=== PATIENT | female | born 1975 | race Caucasian/White ===

== ENCOUNTER 2018-08-03 10:18 | Emergency (ER) | payer MEDICAID ==
[2018-08-03] MEDS ORDERED: IPRATROPIUM/ALBUTEROL 0.5-2.5 MG/3 ML AMPUL NEB ONE ×2 (10:58→12:28)
[2018-08-03] MEDS ORDERED: METHYLPREDNISOLONE INJ 125 MG/2 ML SDV IV ONE (10:58)
--- NOTE | 2018-08-03 11:00 | ER Document Report ---
ED Medical Screen (RME) - General Chief Complaint: Respiratory Distress Stated Complaint: COUGH Time Seen by Provider: 08/03/18 10:41 Notes: Patient is a 43-year-old female with asthma that presents to the emergency department for chief complaint of shortness of breath and cough. Patient reports having symptoms for 4-5 days, was getting some improvement with her nebulizer, but decided come to the emergency department as things did not seem to be getting much better. ROS: Other than noted above, the 12 point review of systems was reviewed with the patient and were negative, all pertinent findings are included in the HPI. PHYSICAL EXAMINATION: Vital signs reviewed. GENERAL: Appears anxious HEAD: Atraumatic, normocephalic. EYES: Pupils equal round extraocular movements intact, conjunctiva are normal. ENT: Nares patent NECK: Normal range of motion CV: Heart regular rate and rhythm LUNGS: Decreased expiratory air movement throughout all lung palomino, no crackles, or immediate respiratory distress Musculoskeletal: Normal range of motion NEUROLOGICAL: Normal speech PSYCH: Appears anxious MDM: Patient seen and examined for rapid initial assessment. Vital signs reviewed. A comprehensive ED assessment and evaluation of the patient, analysis of test results and completion of the medical decision making process will be conducted by additional ED providers. *Note is created using voice recognition software and may contain spelling, syntax or grammatical errors. TRAVEL OUTSIDE OF THE [place] IN LAST 30 DAYS: No - Related Data Allergies/Adverse Reactions: clindamycin Allergy (Verified 08/03/18 10:19) Past Medical History Renal/ Medical History: Denies: Hx Peritoneal Dialysis Physical Exam - Vital signs Vitals: Temp Pulse Resp BP Pulse Ox 99.1 F 79 20 161/95 H 95 08/03/18 10:33 08/03/18 10:33 08/03/18 10:33 08/03/18 10:33 08/03/18 10:33 Course - Vital Signs Vital signs: Temp Pulse Resp BP Pulse Ox 99.1 F 79 20 161/95 H 95 08/03/18 10:33 08/03/18 10:33 08/03/18 10:33 08/03/18 10:33 08/03/18 10:33
--- NOTE | 2018-08-03 11:04 | EKG REPORT ---
SEVERITY:- NORMAL ECG - SINUS RHYTHM : Confirmed by: Marcio Coppola MD 03-Aug-2018 11:03:51
--- NOTE | 2018-08-03 11:22 | RADIOLOGY REPORT (SQ) ---
EXAM DESCRIPTION: CHEST SINGLE VIEW COMPLETED DATE/TIME: 08/03/2018 11:00 am REASON FOR STUDY: c/p resp distres COMPARISON: None. EXAM PARAMETERS: NUMBER OF VIEWS: One view. TECHNIQUE: Single frontal radiographic view of the chest acquired. RADIATION DOSE: NA LIMITATIONS: None. FINDINGS: LUNGS AND PLEURA: No opacities, masses or pneumothorax. No pleural effusion. MEDIASTINUM AND HILAR STRUCTURES: No masses. Contour normal. HEART AND VASCULAR STRUCTURES: Heart normal in size. Normal vasculature. BONES: No acute findings. HARDWARE: Venous access catheter tip in the SVC. OTHER: No other significant finding. IMPRESSION: NO ACUTE RADIOGRAPHIC FINDING IN THE CHEST. TECHNICAL DOCUMENTATION: JOB ID: [id number] [employer]- All Rights Reserved Reading location - IP/workstation name: [email or web address]
[2018-08-03 13:15] LABS: ABSOLUTE EOSINOPHILS # (AUTO) 0.1 10^3/uL (0.0-0.6); ABSOLUTE LYMPHOCYTES (AUTO) 0.5 10^3/uL (0.5-4.7); ABSOLUTE MONOCYTES (AUTO) 0.2 10^3/uL (0.1-1.4); ABSOLUTE NEUT (AUTO) 3.4 10^3/uL (1.7-8.2); BASOPHILS % (AUTO) 0.4 % (0-2); EOSINOPHILS % (AUTO) 1.2 % (0-6); HEMOGLOBIN 13.6 g/dL (12.0-15.5); LYMPHOCYTES % (AUTO) 12.8 % (13-45); MEAN CORPUSCULAR HEMOGLOBIN 32.1 pg (27.0-33.4); MEAN CORPUSCULAR VOLUME 92 fl (80-97); MONOCYTES % (AUTO) 5.4 % (3-13); PLATELET COUNT 143 10^3/uL (150-450); RED BLOOD COUNT 4.25 10^6/uL (3.72-5.28); RED CELL DISTRIBUTION WIDTH 12.9 % (11.5-14.0); SEGMENTED NEUTROPHILS % (AUTO) 80.2 % (42-78); TOTAL CELLS COUNTED % (AUTO) 100 %; WHITE BLOOD COUNT 4.2 10^3/uL (4.0-10.5)
[2018-08-03 13:30] LABS: ALANINE AMINOTRANSFERASE 27 U/L (9-52); ALBUMIN 4.8 g/dL (3.5-5.0); ALKALINE PHOSPHATASE 107 U/L (38-126); ANION GAP 12 (5-19); ASPARTATE AMINO TRANSFERASE 46 U/L (14-36); BILIRUBIN,DIRECT 0.2 mg/dL (0.0-0.4); BILIRUBIN,TOTAL 0.6 mg/dL (0.2-1.3); BLOOD UREA NITROGEN 8 mg/dL (7-20); CALCIUM 9.1 mg/dL (8.4-10.2); CARBON DIOXIDE 28 mmol/L (22-30); CHLORIDE 102 mmol/L (98-107); GLUCOSE 112 mg/dL (75-110); SODIUM 142.3 mmol/L (137-145); TOTAL PROTEIN 7.6 g/dL (6.3-8.2)
[2018-08-03 13:34] LABS: A TYPE INFLUENZA AG NEGATIVE (NEGATIVE)
[2018-08-03 13:35] LABS: B INFLUENZA AG NEGATIVE (NEGATIVE)
--- NOTE | 2018-08-03 15:27 | RADIOLOGY REPORT (SQ) ---
EXAM DESCRIPTION: CTA CHEST COMPLETED DATE/TIME: 08/03/2018 2:57 pm REASON FOR STUDY: cough, sob COMPARISON: Chest films 08/03/2017 TECHNIQUE: CT scan of the chest performed using helical scanning technique with dynamic intravenous contrast injection. Images reviewed with lung, soft tissue and bone windows. Reconstructed coronal and sagittal MPR images reviewed. Additional 3 dimensional post-processing performed to develop Maximal Intensity Projection images (MD P). All images stored on PACS. All CT scanners at this facility use dose modulation, iterative reconstruction, and/or weight based d osing when appropriate to reduce radiation dose to as low as reasonably achievable (ALARA). [facility]: Dose Right [facility]: CareDose [facility]: Dose Right [facility]: Teradose 4D [facility]: Twirl TV CONTRAST TYPE AND DOSE: contrast/concentration: Isovue 350.00 mg/ml; Total Contrast Delivered: 81.0 ml; Total Saline Delivered: 71.2 ml Contrast bolus optimized for the pulmonary arteries. Not diagnostic for the aorta. RENAL FUNCTION: Creatinine 0.66 RADIATION DOSE: CT Rad equipment meets quality standard of care and radiation dose reduction techniq ues were employed. CTDIvol: 24.1 - 24.8 mGy. DLP: 896 mGy-cm. . LIMITATIONS: None. FINDINGS: LUNGS AND PLEURA: In the right lateral costophrenic sulcus, a 1.5 x 1 cm nodule is present on axial image 70 and coronal image 36. Lungs are otherwise well inflated and clear. No pleural effusion. No pneumothorax. AORTA AND GREAT VESSELS: No aneurysm. Contrast bolus not optimized for the aorta. HEART: No pericardial effusion. No significant coronary artery calcifications. PULMONARY ARTERIES: No emboli visualized in the main pulmonary arteries or the segmental branches. HILAR AND MEDIASTINAL STRUCTURES: No identified masses or abnormal nodes. HARDWARE: Right permanent central line tip superior vena cava UPPER ABDOMEN: Surgical clips post gastric bypass THYROID AND OTHER SOFT TISSUES: No masses. No adenopathy. BONES: No acute or significant finding. 3D MIPS: Confirm above findings. OTHER: No other significant finding. IMPRESSION: No CT angio evidence of acute pulmonary emboli No acute infiltrates 1.5 x 1 cm nodule right lateral lung base COMMENT: Quality ID # [id number]: Final reports with documentation of one or more dose reduction techniques (e.g., Automated exposure control, adjustment of the mA and/or kV according to patient size, use of iterative reconstruction technique) TECHNICAL DOCUMENTATION: JOB ID: [id number] [email or web address] [facility]- All Rights Reserved Reading location - IP/workstation name: [email or web address]
[2018-08-03] MEDS ORDERED: ALBUTEROL SULFATE HFA (90 MCG/PUFF) 8 GM MDI (1 MDI/ER DISP) IH PRN (15:45)
--- NOTE | 2018-08-03 15:48 | ER Document Report ---
ED General - General Chief Complaint: Respiratory Distress Stated Complaint: COUGH Time Seen by Provider: 08/03/18 10:41 Primary Care Provider: ZEFERINO DALY MD [ACTIVE STAFF] - Follow up as needed (This is the number the oncologist) AREN BLACKWELL MD [ACTIVE STAFF] - Follow up as needed (This is the number of a primary care doctor: Call the office tomorrow for the next available appointment) Mode of Arrival: Ambulatory Information source: Patient Notes: This is a 43-year-old female she does have a history of endometrial cancer (stage IV) status post chemotherapy and radiation ([place], [place]) that stopped treatment in June 2017 by choice. Patient states she decided not to go for any further treatments at that time. Patient presents to the emergency room with 4-5-day history of productive cough, white sputum, intermittent wheezing. She states she does have a history of pneumonia and a collapsed lung and states that her symptoms are similar to that now. TRAVEL OUTSIDE OF THE [place] IN LAST 30 DAYS: No - HPI Onset: Last week Onset/Duration: Gradual Quality of pain: Dull Severity: Moderate Pain Level: 2 Associated symptoms: Nonproductive cough, Fever, Shortness of breath Exacerbated by: Denies Relieved by: Denies Similar symptoms previously: Yes Recently seen / treated by doctor: No - Related Data Allergies/Adverse Reactions: clindamycin Allergy (Verified 08/03/18 10:19) Past Medical History - General Information source: Patient - Social History Smoking Status: Former Smoker Cigarette use (# per day): No Chew tobacco use (# tins/day): No Frequency of alcohol use: None Drug Abuse: None Lives with: Spouse/Significant other Family History: None Patient has suicidal ideation: No Patient has homicidal ideation: No - Past Medical History Cardiac Medical History: Reports: None Pulmonary Medical History: Reports: Hx Bronchitis, Hx Pneumonia EENT Medical History: Reports: None Neurological Medical History: Reports: None Endocrine Medical History: Reports: None Renal/ Medical History: Reports: None. Denies: Hx Peritoneal Dialysis Malignancy Medical History: Reports: Other - Endometrial cancer GI Medical History: Reports: None Musculoskeletal Medical History: Reports None Skin Medical History: Reports None Psychiatric Medical History: Reports: Hx Anxiety Traumatic Medical History: Reports: None Infectious Medical History: Reports: None Past Surgical History: Reports: Hx Hysterectomy Review of Systems - Review of Systems Constitutional: Chills, Fever EENT: No symptoms reported Cardiovascular: denies: Chest pain, Palpitations, Heart racing Respiratory: See HPI Gastrointestinal: No symptoms reported Genitourinary: No symptoms reported Female Genitourinary: No symptoms reported Musculoskeletal: No symptoms reported Skin: No symptoms reported Hematologic/Lymphatic: No symptoms reported Neurological/Psychological: No symptoms reported Physical Exam - Vital signs Vitals: Temp Pulse Resp BP Pulse Ox 99.1 F 79 20 161/95 H 95 08/03/18 10:33 08/03/18 10:33 08/03/18 10:33 08/03/18 10:33 08/03/18 10:33 Notes: Physical exam: GENERAL: This is a pleasant 43-year-old female who is alert and oriented x3, no acute distress, she does have a persistent nonproductive cough. HEAD: Atraumatic, normocephalic. EYES: Pupils equal round and reactive to light, extraocular movements intact, sclera anicteric, conjunctiva are normal. ENT: TMs normal, nares patent, oropharynx clear without exudates. Moist mucous membranes. NECK: Normal range of motion, supple without obvious mass or JVD. LUNGS: Scant wheezing. HEART: Regular rate and rhythm without murmurs, rubs or gallops. ABDOMEN: Soft, normoactive bowel sounds. No tenderness to palpation. No guarding, no rebound. No masses appreciated. EXTREMITIES: Normal range of motion, no pitting or edema. No clubbing or cyanos is. NEUROLOGICAL: Cranial nerves II through XII grossly intact. Normal speech, moving all extremities. PSYCH: Normal mood, normal affect. SKIN: Warm, Dry, normal turgor, no rashes or lesions noted. Course - Re-evaluation Re-evalutation: 08/03/18 19:51 I had a long discussion with the patient. She came in with concerns for per sistent cough productive of white sputum, some wheezing and she had had a lung collapse and pneumonia in the past. She also stated that she had stopped the chemotherapy a year ago because it was affecting her quality of life. She is new to the area and said she had been having second thoughts of may be getting a second opinion about whether she needs to go back on chemotherapy. I gave her the results of the labs as well as the CTA which shows a 1.5 cm nodule in the right lower lobe and this clearly needs to be followed up. I informed her that this could potentially be related to the endometrial cancer, it is difficult to know at this point. she is willing to see an oncologist and I will refer her to Dr. Daly's office. Additionally, given that she is new to the area, she will need follow-up with a primary care doctor. Her blood pressure was elevated today and she is on losartan and metoprolol. The plan will be to keep this going for now: She does have enough medicines. For her reactive airway component as well as lung infection, I will prescribe azithromycin (it is work for her in the past) along with prednisone, albuterol nebulizer and an inhaler. I will refer her to Pilar's office for her primary care issues. - Vital Signs Vital signs: Temp Pulse Resp BP Pulse Ox 98.7 F 78 18 154/82 H 98 08/03/18 16:16 08/03/18 16:16 08/03/18 16:16 08/03/18 16:16 08/03/18 16:16 - Laboratory Result Diagrams: 08/03/18 12:54 08/03/18 12:54 Laboratory results interpreted by me: 08/03/18 08/03/18 08/03/18 12:54 12:54 12:54 Plt Count 143 L Seg Neutrophils % 80.2 H Lymphocytes % 12.8 L Glucose 112 H AST 46 H NT-Pro-B Natriuret Pep 192 H - Diagnostic Test Radiology reviewed: Image reviewed, Reports reviewed - CTA shows no pulmonary emboli, infiltrates. There is a 1.5 cm nodule in the right lower lobe Discharge - Discharge Clinical Impression: Early lower respiratory tract infection Condition: Stable Disposition: HOME, SELF-CARE Additional Instructions: As we discussed, the CT of the chest showed no evidence of pneumonia, lung collapse or blood clots which is good. There was a 1.5 cm nodule in the right lower lung and this will need to be followed. Want you to take the antibiotics as prescribed. Take the steroids as prescribed. Use the Ativan as needed. Use the albuterol nebulizer as prescribed. I also have given you an albuterol inhaler to take every 4-6 hours as needed. I do want you to follow-up with a primary care doctor: I left the number for one on the chart. I also want you followed up with an oncologist: I left the number for Dr. Daly: Call the number tomorrow to schedule earliest possible appointment. Tell them that you were seen in the emergency room. Give them your history of cancer. Return to the emergency room for any worsening shortness of breath or any concerns or getting worse. Prescriptions: Albuterol Sulfate [Albuterol Sulfate 5mg/1 mL] 5 mg PO Q4 PRN #14 ml PRN Reason: Azithromycin [Zithromax 250 mg Tablet] 250 mg PO ASDIR PRN #6 tablet PRN Reason: Lorazepam [Ativan 1 mg Tablet] 1 tab PO TID #20 tablet Prednisone [Deltasone 20 mg Tablet] 3 tab PO DAILY 5 Days #15 tablet Referrals: ZEFERINO DALY MD [ACTIVE STAFF] - Follow up as needed (This is the number the oncologist) AREN BLACKWELL MD [ACTIVE STAFF] - Follow up as needed (This is the number of a primary care doctor: Call the office tomorrow for the next available appointment)
[2018-08-03 16:17] VITALS: BP 154/82
== END 2018-08-03 16:16 | disposition home or self-care (01) ==
LOC: ER 10:18
DX: J22 Unspecified acute lower respiratory infection (principal); R91.1 Solitary pulmonary nodule; R05 Cough; R06.2 Wheezing; R50.9 Fever, unspecified; R06.02 Shortness of breath; I10 Essential (primary) hypertension; Z79.899 Other long term (current) drug therapy; Z87.01 Personal history of pneumonia (recurrent); Z88.1 Allergy status to other antibiotic agents; Z87.891 Personal history of nicotine dependence; Z92.21 Personal history of antineoplastic chemotherapy; Z92.3 Personal history of irradiation
CPT/HCPCS: 93005; 94640 ×2; 99285; 96374; 36415; 85025; 80053; 87804; 83880; 71045; 71275; 93010; J2930; J3490; J7620

== ENCOUNTER 2020-02-22 17:09 | Emergency (ER) | payer MEDICAID ==
--- NOTE | 2020-02-22 18:33 | RADIOLOGY REPORT (SQ) ---
EXAM DESCRIPTION: KNEE RIGHT 3 VIEWS IMAGES COMPLETED DATE/TIME: 02/22/2020 6:25 pm REASON FOR STUDY: trauma COMPARISON: None. NUMBER OF VIEWS: Four views. TECHNIQUE: AP, lateral, and both oblique radiographic images acquired of the right knee. LIMITATIONS: None. FINDINGS: MINERALIZATION: Normal. BONES: No acute fracture or dislocation. No worrisome bone lesions. JOINT: No effusion. SOFT TISSUES: No soft tissue swelling. No radio-opaque foreign body. OTHER: No other significant finding. IMPRESSION: NEGATIVE STUDY OF THE RIGHT KNEE. NO RADIOGRAPHIC EVIDENCE OF ACUTE INJURY. TECHNICAL DOCUMENTATION: JOB ID: [id number] [employer]- All Rights Reserved Reading location - IP/workstation name: [email or web address]
[2020-02-22] MEDS ORDERED: LIDOCAINE 1%/EPINEPHRINE INJ 20 ML VIAL INJ ONE (19:31)
[2020-02-22] MEDS ORDERED: OXYCODONE-ACETAMINOPHEN 5-325 MG TABLET PO ONE (20:11)
[2020-02-22] MEDS ORDERED: LIDOCAINE 4%/TETRACAINE 0.5%/EPI 0.18% 5 ML TOPICAL SOLN TOP ONE (20:11)
--- NOTE | 2020-02-22 21:00 | ER Document Report ---
ED General - General Chief Complaint: Fall Injury Stated Complaint: FALL/LACERATION TO RIGHT KNEE Notes: 44-year-old female history of terminal endometrial cancer presents with mechanical fall just prior to arrival causing injury to right knee. Patient states she slipped and fell on the wet pain and rain in [employer] parking lot and that insulated injury to right knee. Patient has been able to ambulate since injury denies any injury elsewhere. Patient denies any headache, neck or back pain, weakness or numbness. Patient had tetanus updated 3 years ago when she had prior injury to right knee. Patient blood pressure initially elevated because had not taken daily BP meds and also pain and has improved, patient without any chest pain or shortness of breath, feels completely well other than the right knee pain. TRAVEL OUTSIDE OF THE [place] IN LAST 30 DAYS: No - Related Data Allergies/Adverse Reactions: clindamycin Allergy (Verified 08/03/18 10:19) Home Medications: Amlodipine, metoprolol, lisinopril Past Medical History - General Information source: Patient, Relative - Social History Smoking Status: Current Every Day Smoker Frequency of alcohol use: Occasional Family History: None Patient has homicidal ideation: No Pulmonary Medical History: Reports: Hx Bronchitis, Hx Pneumonia Renal/ Medical History: Denies: Hx Peritoneal Dialysis Psychiatric Medical History: Reports: Hx Anxiety Past Surgical History: Reports: Hx Hysterectomy Review of Systems - Review of Systems Notes: REVIEW OF SYSTEMS: CONSTITUTIONAL : Denies fever, chills, or sweats. EENT: Denies recent cold/sinus symptoms, denies throat pain CARDIOVASCULAR: Denies chest pain, SHOSHANA RESPIRATORY: Denies cough, denies shortness of breath. GASTROINTESTINAL: Denies abdominal pain, nausea/vomiting. GENITOURINARY: Denies difficulty urinating, painful urination. MUSCULOSKELETAL: Denies neck pain, back pain. SKIN: Denies rash +skin lesions. HEMATOLOGIC : Denies easy bruising or bleeding. LYMPHATIC: Denies swollen, enlarged glands. NEUROLOGICAL: Denies headache, denies change in gait. PSYCHIATRIC: Denies anxiety or stress or depression. Physical Exam - Vital signs Vitals: Temp Pulse Resp BP Pulse Ox 97.9 F 90 20 223/116 H 97 02/22/20 17:14 02/22/20 17:14 02/22/20 17:14 02/22/20 17:14 02/22/20 17:14 - Notes Notes: PHYSICAL EXAMINATION: GENERAL: Well-appearing, well-nourished, talkative pleasant cheerful appearing middle-aged woman sitting up in stretcher without any visible signs of disco mfort and in no acute distress. HEAD: Atraumatic, normocephalic. EYES: Pupils equal round and appropriate constriction, sclera anicteric, conjunctiva are normal. ENT: nares patent, moist mucous membranes. NECK/BACK: Normal range of motion, supple without lymphadenopathy, no C/T/L/S spinal tenderness or deformity LUNGS: Breath sounds clear to auscultation bilaterally and equal. No wheezes rales or rhonchi. HEART: Regular rate and rhythm without murmurs ABDOMEN: Soft, nontender, no guarding, no masses, no CVAT EXTREMITIES: Normal range of motion, no pitting or edema. No cyanosis. Bilateral DP pulses 2+, 5 out of 5 strength in bilateral extremity distributions, normal sensation, able to straight leg raise bilaterally, laceration to right knee with flap NEUROLOGICAL: Awake, alert, conversing appropriately, moves all extremities spontaneously. PSYCH: Normal mood, normal affect. SKIN: Warm, Dry, normal turgor Course - Re-evaluation Re-evalutation: 02/22/20 21:00 Isolated right knee injury, neurovascularly intact, tetanus up-to-date, negative x-ray. Will repair laceration and DC with PCP and Ortho follow-up and return precautions. - Vital Signs Vital signs: Temp Pulse Resp BP Pulse Ox 97.3 F 70 18 146/93 H 96 02/22/20 22:32 02/22/20 22:32 02/22/20 22:32 02/22/20 22:32 02/22/20 22:32 Procedures - Laceration/Wound Repair Right Knee Time completed: 22:22 Wound length (cm): 2 Wound's Depth, Shape: Irregular, Flap, Contused tissue Laceration pre-procedure: Sterile PPE donned Anesthetic type: 1% Lidocaine w/epi Volume Anesthetic (mLs): 10 Irrigated w/ Saline (mLs): 50 Wound Debrided: Minimal Wound Repaired With: Sutures Suture Size/Type: 3:0, Nylon Number of Sutures: 4 Layer Closure?: No Post-procedure NV exam normal: Yes Complications: No Notes: 02/22/20 22:24 flap revised Discharge - Discharge Clinical Impression: Laceration of knee Qualifiers: Encounter type: initial encounter Laterality: right Qualified Code(s): S81.011A - Laceration without foreign body, right knee, initial encounter Disposition: HOME, SELF-CARE Additional Instructions: Laceration Care Your laceration has been sutured to keep the skin edges aligned during healing. The time of suture removal depends on the nature and location of your cut. Please follow the care instructions the doctor has outlined for you and return for further care, according to the schedule you've been given. Keep the wound and dressing clean. Unless you were told otherwise, you may shower daily, blotting the wound dry with a clean, unused towel. At other times, If the dressing gets wet or blood soaked, remove it and blot the wound dry, then reapply a new dressing. Unless you were instructed otherwise, dressings should be changed at least daily. If any signs of infection occur (swelling, redness, increasing tenderness, red streaks, tender lumps in the armpit or groin above the laceration, or fever), see the doctor immediately. Take all antibiotics as prescribed, follow-up with orthopedic surgeon in 1 week. Do not submerge, keep dry for 2 days and then use soap and water and blot dry, cover with antibiotic ointment and gauze. if you have any worsening pain, spreading pain, inability to bend knee, skin redness, swelling, fever, vomiting, or any other worsening or alarming symptoms return to the emergency department immediately Prescriptions: Oxycodone HCl/Acetaminophen [Percocet 5-325 mg Tablet] 1 tab PO Q6HP PRN #4 tablet PRN Reason: Severe Pain Cephalexin Monohydrate [Keflex 500 mg Capsule] 500 mg PO TID 5 Days #15 capsule
[2020-02-22] MEDS ORDERED: CEPHALEXIN 500 MG CAPSULE PO ONE (22:22)
[2020-02-22 22:43] VITALS: BP 146/93
== END 2020-02-22 22:44 | disposition home or self-care (01) ==
LOC: ER 17:09
DX: S81.011A Laceration without foreign body, right knee, initial encounter (principal); W01.0XXA Fall on same level from slipping, tripping and stumbling without subsequent striking against object, initial encounter; Y92.481 Parking lot as the place of occurrence of the external cause; F17.200 Nicotine dependence, unspecified, uncomplicated; Z90.710 Acquired absence of both cervix and uterus; Z23 Encounter for immunization
CPT/HCPCS: 99284; 73562; 12001; J3490 ×2

== ENCOUNTER → 2020-05-05 | Outpatient (CLI) | payer MEDICAID ==
--- NOTE | 2020-05-05 14:47 | RADIOLOGY REPORT (SQ) ---
EXAM DESCRIPTION: MRI LUMBAR SPINE COMBO IMAGES COMPLETED DATE/TIME: 05/05/2020 2:31 pm REASON FOR STUDY: C54.1 MALIGNANT NEOPLASM OF ENDOMETRIUM C54.1 MALIGNANT NEOPLASM OF ENDOMETRIUM COMPARISON: None. TECHNIQUE: Sagittal and Axial imaging includes T1, T1 post gadolinium, T2, STIR and gradient echo se quences. Coronal T2/HASTE imaging. CONTRAST TYPE AND DOSE: 20 mL Prohance. RENAL FUNCTION: Not indicated. ACR Type II contrast agent associated with few, if any, unconfounded cases of NSF LIMITATIONS: None. FINDINGS: VISUALIZED UPPER ABDOMEN: Limited evaluation. No acute or suspicious findings suggested. SEGMENTATION: No transitional anatomy. The lowest well-developed disc space is labeled L5-S1. ALIGNMENT: Anatomic. VERTEBRAE: Intact. No fractures. BONE MARROW: Abnormal marrow involving the body of L3 demonstrating decreased signal intensity on T1 weighted images high-signal intensity on T2 and STIR with abnormal enhancement. DISC SIGNAL: Multilevel desiccation. POSTERIOR ELEMENTS: Generally intact. No pars defect evident. HARDWARE: None in the spine. CORD AND CONUS: Normal in size and signal intensity. Conus at the appropriate level. SOFT TISSUES: No aortic aneurysm seen. No bulky retroperitoneal adenopathy or mass. No paraspinal mas s or fluid. L1-L2: No significant spinal stenosis or exit foraminal stenosis. L2-L3: No significant spinal stenosis or exit foraminal stenosis. L3-L4: No significant spinal stenosis or exit foraminal stenosis. L4-L5: No significant spinal stenosis or exit foraminal stenosis. L5-S1: No significant spinal stenosis or exit foraminal stenosis. LOWER THORACIC: Incompletely imaged. No stenosis seen. SACRUM: Visualized upper sacrum intact. ENHANCEMENT: Abnormal enhancement involving the body of L3. OTHER: No other significant findings. IMPRESSION: Marrow replacement L3 with enhancement consistent with bony metastatic disease. TECHNICAL DOCUMENTATION: JOB ID: [id number] [employer]- All Rights Reserved Reading location - IP/workstation name: [email or web address]
== END ==
LOC: RAD 13:23
PROVIDERS: ATTEND Student in an Organized Health Care Education/Training Program
DX: C54.1 Malignant neoplasm of endometrium (principal); C79.51 Secondary malignant neoplasm of bone
CPT/HCPCS: 82565; 72158; A9576